=== PATIENT | female | born 1975 | race American Indian/Alaskan Native ===

== ENCOUNTER 2024-06-23 16:00 | Emergency (ER) | payer OTHER, SELFPAY ==
[2024-06-23 16:04] VITALS: BP 139/80
[2024-06-23 17:00] LABS: COVID-19 Antigen Negative (Negative)
--- NOTE | 2024-06-23 17:49 | ED.GENMED ---
History of Present Illness
General
Chief Complaint: Cold/Flu/URI Symptoms
Source: patient
Time Seen by Provider: 06/23/24 17:35
History of Present Illness
History of Present Illness:
48-year-old female presenting to the emergency department for evaluation of cough and upper respiratory symptoms that been ongoing since last week. Patient saw her primary care provider on Tuesday and was prescribed Augmentin for a bilateral ear
infection and possible early pneumonia. Patient reports she has been taking this with no relief and still notes significant congestion, cough, body aches, low-grade fevers and generally feeling unwell. No known sick contacts, patient was recently
at the beach, no other antibiotics recently. Patient states she is prone to pneumonia due to history of asthma. No other concerns at this time.
Past History
Past History
ED Past Medical History: Asthma and GERD (esophogitis)
ED Past Surgical History: Tonsilectomy
Social History
Tobacco: Non-smoker
Alcohol: Occasional
Drug: None
Personal:
Living: with family
Employment: Employed
Review of Systems
Review of Systems
All Other Systems: ROS reviewed and negative except as documented in HPI and ROS
Phy Exam
Physical Exam
Physical Exam:
GENERAL: Alert , appears congested, intermittent nonproductive cough noted
EYE: conjunctiva clear
NECK: Supple, no significant adenopathy.
ENT: o/p clr, mmm.
CARDIAC: Regular rate and rhythm, no murmur
LUNGS: Clear breath sounds bilaterally, no acute respiratory distress, no wheezes/rales/rhonchi
NEUROLOGICAL: Alert and oriented
SKIN: Warm and dry, skin intact.
MUSCULOSKELETAL: well perfused.
PSYCH: Normal and appropriate interaction.
Scores
Heart Failure Risk
Heart Failure Risk Score: Not Applicable
Heart Score for Chest Pain Patients
STEMI patient?: Not applicable
Withdrawal Assessment of Alcohol
Withdrawal Assessment Completed?: Not applicable
Course
Orders/Labs/Results
Orders:
Orders
06/23/24 16:13
COVID-19 Antigen Urgent
Source: Nasal Swab
06/23/24 17:48
CR Chest - 2 Views Urgent
Comment:
Reason For Exam: cough, URI like symptoms
Vital Signs
Initial and Last Documented VS:
Initial Vital Signs
Temp Pulse Resp BP Pulse Ox
99.7 F 89 16 139/80 96
06/23/24 16:04 06/23/24 16:04 06/23/24 16:04 06/23/24 16:04 06/23/24 16:04
Last Documented Vital Signs
Temp Pulse Resp BP Pulse Ox
99.7 F 83 14 139/87 96
06/23/24 16:04 06/23/24 19:31 06/23/24 19:31 06/23/24 19:31 06/23/24 19:31
MDM/Problems Addressed
Differential Diagnosis Includes:
Viral syndrome, pneumonia, sinusitis
MDM/Problems Addressed:
48-year-old female presenting the emergency department for evaluation of cold and flulike symptoms been ongoing for about 1 week, unrelieved with Augmentin. Patient has a low-grade fever here of 99.7. Otherwise hemodynamically stable and in no
acute respiratory distress. COVID testing was done in triage and was ultimately negative. Will order chest x-ray. Discussed with patient possibility of adding on steroid as well as using [id number] such as Sudafed and Claritin for sinus
symptoms. Anticipate discharge home
Chronic conditions affecting care: Asthma
*Radiology
Radiology exam reviewed: preliminary read by ED provider (Questionable right lower lobe infiltrate)
*Pulse Oximetry
Patient hypoxic: no
*Critical Care Note
Total Time (30-74mins, 75-104mins- exclusive of procedures): Not Applicable
Patient Management
Escalation/DeEscalation of care consider admission/obs:
Patient does have a questionable right lower lobe infiltrate on chest x-ray. Will change antibiotic to doxycycline. Will also add on prednisone and over the [id number] measures. Encouraged close follow-up with primary care provider.
Patient is otherwise stable for discharge home.
ED Attending Note
-
Portions of this chart may have been created with voice recognition software.� Occasional wrong word or��sound alike� substitutions may have occurred due to the inherent limitations of voice recognition software.
Discharge Plan
Departure
Patient Disposition: Home (Routine Discharge)
Date of Disposition: 06/23/24
Time of Disposition: 19:22
Patient with high blood pressure during this ER visit?: Yes
Discharge Problem:
URI (upper respiratory infection)
Instructions: Pneumonia
Prescriptions:
New
prednisone 10 mg Tablet
See Rx Instructions .ROUTE .COMPLEX Qty: 30 0RF
Rx Instructions:
Take By Mouth:
40 mg daily x3 days, 30 mg daily x3 days,
20 mg daily x3 days, 10 mg daily x3 days.
doxycycline hyclate [Vibramycin] 100 mg capsule
100 mg PO BID 10 Days Qty: 20 0RF
No Action
cetirizine 10 MG tablet
10 mg PO DAILY
acetaminophen [Tylenol Extra Strength] 500 MG tablet
1,000 mg PO Q6HPRN PRN (Reason: pain)
aspirin 81 MG tablet,chewable
81 mg PO DAILY
fluticasone propionate 1 SPRAY spray,suspension
1 spray intranasal DAILYPRN PRN (Reason: allergies)
L.acidoph, paracasei,B. lactis 1 EACH capsule
1 ea PO BID
Control
1 tab PO DAILY
Interventions
Interventions:
*Risk Screen - Suicide Last Done: 06/23/24 17:57
*General Assessment Last Done: 06/23/24 17:57
*Neglect/Abuse Screening Last Done: 06/23/24 17:57
ED- Fall Risk Assessment Last Done: 06/23/24 17:57
*ED COVID-19 Vaccine History Last Done: 06/23/24 17:57
*Nursing Disposition Last Done: 06/23/24 19:33
ED- Pulmonary Assessment Last Done: 06/23/24 17:38
Discharge Date and Time
Discharge Date/Time: 06/23/24 19:34
Print Language: CITIZEN OF [place]
[2024-06-23 19:31] VITALS: BP 139/87
== END 2024-06-23 19:34 | disposition home or self-care (01) ==
LOC: EMR 16:00
PROVIDERS: Student in an Organized Health Care Education/Training Program; EMERGENCY PHYSICIAN Emergency Medicine; FAMILY PHYSICIAN Nurse Practitioner Family
DX: J06.9 Acute upper respiratory infection, unspecified (principal); R03.0 Elevated blood-pressure reading, without diagnosis of hypertension; Z11.52 Encounter for screening for COVID-19; J45.909 Unspecified asthma, uncomplicated
CPT/HCPCS: 99283; 71046; 87811

== ENCOUNTER → 2024-11-26 14:18 | Outpatient (REF) | payer OTHER, SELFPAY | LOC: WDC 14:18 | PROVIDERS: ATTENDING PHYSICIAN Obstetrics & Gynecology; FAMILY PHYSICIAN Nurse Practitioner Family | DX: Z12.31 Encounter for screening mammogram for malignant neoplasm of breast (principal); R92.8 Other abnormal and inconclusive findings on diagnostic imaging of breast | CPT/HCPCS: 76642; 77063; 77067 ==

== ENCOUNTER → 2025-05-20 08:04 | Outpatient (REF) | payer OTHER, SELFPAY | LOC: WDC 08:04 | PROVIDERS: ATTENDING PHYSICIAN Obstetrics & Gynecology; FAMILY PHYSICIAN Nurse Practitioner Family | DX: R92.8 Other abnormal and inconclusive findings on diagnostic imaging of breast (principal) | CPT/HCPCS: 76642 ==

== ENCOUNTER → 2025-11-07 08:05 | Outpatient (REF) | payer OTHER, SELFPAY | LOC: WDC 08:05 | PROVIDERS: ATTENDING PHYSICIAN Obstetrics & Gynecology; FAMILY PHYSICIAN Nurse Practitioner Family | DX: R92.2 Inconclusive mammogram (principal); R92.30 Dense breasts, unspecified | CPT/HCPCS: 76641 ==

== ENCOUNTER → 2025-11-13 07:54 | Outpatient (REF) | payer OTHER, SELFPAY ==
--- NOTE | 2025-11-13 13:53 | OID.BR.INTR ---
[facility] Navigator - Initial
- -
Date of Contact: 11/13/25
Met with patient. Patient given written information on navigator service available at [facility]. Will follow up as needed per protocol.
== END ==
LOC: WDC 07:54
PROVIDERS: ATTENDING PHYSICIAN Obstetrics & Gynecology; FAMILY PHYSICIAN Nurse Practitioner Family
DX: N63.23 Unspecified lump in the left breast, lower outer quadrant (principal)
CPT/HCPCS: 19083; 88305; 88342; A4648